=== PATIENT | male | born 1960 | race African-American/Black ===

== ENCOUNTER 2021-05-17 23:49 | Emergency (ER) | payer MEDICARE, MEDICAID ==
[~2021-05-17] VITALS: Ht 175.3 cm; Wt 80.0 kg
[~2021-05-17 23:49] MED LIST: ATOR10TA69 PO; BUPR100T4 PO; DIPH50TA19 PO; GABA-290 PO; GLIP5TAB12 PO; INSULIN; METF-414 PO; NAPR-681 PO; RANI150T7 PO; RISP2 PO; TRAM50TA3 PO
[2021-05-17 23:52] VITALS: BP 130/83
[2021-05-18] MEDS ORDERED: SODIUM CHLORIDE 0.9% 1,000 ML IV ONE (00:15)
== END 2021-05-18 02:43 | disposition left against medical advice (07) ==
LOC: ER 23:49
DX: R53.1 Weakness (principal); I69.998 Other sequelae following unspecified cerebrovascular disease; R20.0 Anesthesia of skin; I10 Essential (primary) hypertension; E11.9 Type 2 diabetes mellitus without complications
CPT/HCPCS: 71045; 82962; 99283; J7030